=== PATIENT | female | born 1945 | race Caucasian/White ===

== ENCOUNTER 2020-12-24 15:40 | Outpatient (CLI) | payer MEDICARE | END 2020-12-24 15:41 | disposition home or self-care (01) | LOC: SCSRAD 15:40 | PROVIDERS: ATTEND Internal Medicine Rheumatology | DX: M46.1 Sacroiliitis, not elsewhere classified (principal); M54.2 Cervicalgia; M54.6 Pain in thoracic spine; M47.814 Spondylosis without myelopathy or radiculopathy, thoracic region; M47.816 Spondylosis without myelopathy or radiculopathy, lumbar region; M47.812 Spondylosis without myelopathy or radiculopathy, cervical region | CPT/HCPCS: 72050; 72072; 72202 ==

== ENCOUNTER 2022-05-31 08:34 | Outpatient (CLI) | payer MEDICARE | END 2022-05-31 08:35 | disposition home or self-care (01) | LOC: NM 08:34 | PROVIDERS: ATTEND Psychiatry & Neurology Neurology | DX: R25.1 Tremor, unspecified (principal); G20 Parkinson's disease | CPT/HCPCS: 78803; A9584 ==